=== PATIENT | female | born 1965 | race Caucasian/White ===

== ENCOUNTER 2016-10-08 22:56 | Emergency (ER) | payer MEDICARE ==
[~2016-10-08] VITALS: Ht 162.6 cm; Wt 82.2 kg
[~2016-10-08 22:56] MED LIST: AMARYL2 MG OR; ASA LO-DOSE81 MG OR; AVELOX400 MG OR; BAYER ASA325 MG OR; BEANO OR; CIPRO500 MG OR; COMBIVIR OR; COREG12.5 MG PO; CYMBALTA30 MG PO; DARVOCET N-100100 - OR; DIOVAN320 MG PO; ELAVIL10 MG PO; FLEXERIL OR; GERITOL OR; GLIMEPIRIDE4 MG OR; HYZAAR1 TA1 OR; JANUMET1 TA1 PO; LANTUS100 MG/ML SC; LORTAB 5 OR; LUNESTA3 MG OR; LYRICA75 MG OR; MEDROL4 M1 OR; METFORMIN500 MG OR; METOPROL TAR100 MG PO; METOPROLOL25 M1 OR; MIRTAZAPINE ODT15 MG PO; NAPROSYN500 MG OR; NAPROSYN500 MG PO; NORCO1 TA1 PO; NORTRIPTYLIN10 MG PO; PAROXETINE10 M1 PO; PAXIL30 MG PO; PAXIL40 MG OR; PERCOCET1 TA2 OR; PLAVIX75 MG OR; PLAVIX75 MG PO; PRAVACHOL40 MG OR; PROTONIX40 MG OR; REMERON15 MG PO; SUSTIVA50 MG OR; TOUJEO SOL300 UNIT/M SC; ULTRAM50 MG OR; VIT C OR; XANAX2 MG OR; [UNRECOGNIZED DRUG - OTHER] OR
[2016-10-09 01:37] LABS: URINE BILIRUBIN - DIPSTICK NEGATIVE (NEGATIVE); URINE BLOOD DIPSTICK SMALL (NEGATIVE); URINE CLARITY SLIGHT CLOUDY; URINE COLOR YELLOW; URINE GLUCOSE - DIPSTICK >=1000 mg/dL (NEGATIVE); URINE KETONE NEGATIVE (NEGATIVE); URINE LEUK ESTERASE NEGATIVE (NEGATIVE); URINE NITRITE - DIPSTICK NEGATIVE (Negative); URINE PH 6.5 (4.5-8.0); URINE PROTEIN - DIPSTICK NEGATIVE (NEG-TRACE)
[2016-10-09 01:38] LABS: ALBUMIN 3.7 g/dL (3.2-5.0); ALKALINE PHOSPHATASE 224 u/l (38-126); AMYLASE 38 u/l (30-110); ANION GAP 13 (6-22 (CALC)); BILIRUBIN, TOTAL 1.3 mg/dL (0.0-1.4); BUN 10 mg/dL (7-17); BUN/CREATININE RATIO 16 (12-20 (CALC)); CALCIUM 9.4 mg/dL (8.4-10.2); CARBON DIOXIDE 29 mmol/l (22-30); CHLORIDE 99 mmol/l (95-108); CREATININE 0.6 mg/dL (0.5-1.0); GFR > 60 ML/MIN (>=60 (CALC)); GFR FOR AFR.AMER. > 60 ML/MIN (>=60 (CALC)); GLUCOSE 346 mg/dL (65-105); LIPASE 78 u/l (23-300); POTASSIUM 4.9 mmol/l (3.5-5.1); SGOT/AST 74 u/l (14-36); SGPT/ALT 55 u/l (9-52); SODIUM 137 mmol/l (137-146)
[2016-10-09 01:39] LABS: HEMATOCRIT 41.5 % (37.0-47.0); IMMATURE GRANULOCYTES 0.4 % (0.0-1.0); MEAN CELL VOLUME 96.5 fL CALC (80.0-100.0); MEAN CORPUSCULAR HGB 32.6 pG CALC (26.0-32.0); MEAN CORPUSCULAR HGB CONC 33.7 g/L CALC (32.0-36.0); NEUT# 2.91 thou/uL (2.00-7.15); RED BLOOD COUNT 4.3 mill/uL (4.20-5.60); RED CELL DISTRI WIDTH 13.8 % (11.5-15.5)
[2016-10-09 01:50] LABS: URINE BACTERIA FEW hpf; URINE SQUAMOUS EPITHELIAL CELL FEW EPI/hpf (0-FEW)
[2016-10-09] MEDS ORDERED: TRAMADOL HYDROC50 MG PO (02:07)
[2016-10-09] MEDS ORDERED: ORPHENADRINE100 MG PO (02:07)
[2016-10-09 02:28] VITALS: BP 159/78
== END 2016-10-09 02:33 | disposition home or self-care (01) ==
LOC: ED 22:56
PROVIDERS: Emergency Medicine
DX: M54.9 Dorsalgia, unspecified (principal); K74.60 Unspecified cirrhosis of liver; I25.10 Atherosclerotic heart disease of native coronary artery without angina pectoris; E11.9 Type 2 diabetes mellitus without complications; I10 Essential (primary) hypertension; F32.9 Major depressive disorder, single episode, unspecified; F17.210 Nicotine dependence, cigarettes, uncomplicated; K76.6 Portal hypertension; R16.1 Splenomegaly, not elsewhere classified; K43.9 Ventral hernia without obstruction or gangrene; Z95.1 Presence of aortocoronary bypass graft; Z95.5 Presence of coronary angioplasty implant and graft; Z21 Asymptomatic human immunodeficiency virus [HIV] infection status

== ENCOUNTER 2016-11-13 21:11 | Emergency (ER) | payer MEDICARE ==
[~2016-11-13] VITALS: Ht 162.6 cm; Wt 82.4 kg
[~2016-11-13 21:11] MED LIST changes: +ORPHENADRINE100 MG PO; +TRAMADOL HYDROC50 MG PO
[2016-11-13 22:01] LABS: URINE BILIRUBIN - DIPSTICK NEGATIVE (NEGATIVE); URINE BLOOD DIPSTICK MODERATE (NEGATIVE); URINE CLARITY SLIGHT CLOUDY; URINE COLOR YELLOW; URINE GLUCOSE - DIPSTICK >=1000 mg/dL (NEGATIVE); URINE KETONE NEGATIVE (NEGATIVE); URINE LEUK ESTERASE NEGATIVE (NEGATIVE); URINE NITRITE - DIPSTICK NEGATIVE (Negative); URINE PH 6.5 (4.5-8.0); URINE PROTEIN - DIPSTICK NEGATIVE (NEG-TRACE)
[2016-11-13 22:04] LABS: URINE BACTERIA FEW hpf; URINE MUCUS FEW hpf (NONE-FEW); URINE SQUAMOUS EPITHELIAL CELL MODERATE EPI/hpf (0-FEW)
[2016-11-13 22:11] LABS: HEMATOCRIT 39.3 % (37.0-47.0); HEMOGLOBIN 13.4 g/dl (12.0-16.0); IMMATURE GRANULOCYTES 0.3 % (0.0-1.0); MEAN CELL VOLUME 92.9 fL CALC (80.0-100.0); MEAN CORPUSCULAR HGB 31.7 pG CALC (26.0-32.0); MEAN CORPUSCULAR HGB CONC 34.1 g/L CALC (32.0-36.0); NEUT# 3.97 thou/uL (2.00-7.15); RED BLOOD COUNT 4.23 mill/uL (4.20-5.60); RED CELL DISTRI WIDTH 14.5 % (11.5-15.5)
[2016-11-13 22:24] LABS: ALBUMIN 3.7 g/dL (3.2-5.0); ALKALINE PHOSPHATASE 308 u/l (38-126); AMYLASE 37 u/l (30-110); ANION GAP 16 (6-22 (CALC)); BILIRUBIN, TOTAL 1.4 mg/dL (0.0-1.4); BUN 7 mg/dL (7-17); BUN/CREATININE RATIO 14 (12-20 (CALC)); CARBON DIOXIDE 24 mmol/l (22-30); CHLORIDE 99 mmol/l (95-108); CREATININE 0.5 mg/dL (0.5-1.0); GFR > 60 ML/MIN (>=60 (CALC)); GFR FOR AFR.AMER. > 60 ML/MIN (>=60 (CALC)); GLUCOSE 372 mg/dL (65-105); LIPASE 93 u/l (23-300); POTASSIUM 4.4 mmol/l (3.5-5.1); SGOT/AST 70 u/l (14-36); SGPT/ALT 62 u/l (9-52); SODIUM 134 mmol/l (137-146)
[2016-11-14 00:38] VITALS: BP 159/72
== END 2016-11-14 00:40 | disposition home or self-care (01) ==
LOC: ED 21:11
PROVIDERS: Emergency Medicine
DX: R10.11 Right upper quadrant pain (principal); K74.60 Unspecified cirrhosis of liver; R16.1 Splenomegaly, not elsewhere classified; R18.8 Other ascites; G89.29 Other chronic pain; E11.65 Type 2 diabetes mellitus with hyperglycemia; I25.10 Atherosclerotic heart disease of native coronary artery without angina pectoris; I10 Essential (primary) hypertension; F17.210 Nicotine dependence, cigarettes, uncomplicated; F32.9 Major depressive disorder, single episode, unspecified; Z95.1 Presence of aortocoronary bypass graft; Z95.5 Presence of coronary angioplasty implant and graft; Z21 Asymptomatic human immunodeficiency virus [HIV] infection status
CPT/HCPCS: S0164

== ENCOUNTER 2016-12-25 20:49 | Emergency (ER) | payer MEDICARE, MEDICAID ==
[~2016-12-25] VITALS: Ht 162.6 cm; Wt 83.0 kg
[~2016-12-25 20:49] MED LIST changes: +ASPIRIN81 MG PO
[2016-12-25] MEDS ORDERED: ULTRAM50 M1 PO (22:07)
[2016-12-25 22:33] VITALS: BP 150/73
[2016-12-26] MEDS ORDERED: NAPROSYN500 MG PO ×2 (03:00→03:03)
== END 2016-12-25 22:31 | disposition home or self-care (01) ==
LOC: ED 20:49
DX: S80.11XA Contusion of right lower leg, initial encounter (principal); I25.10 Atherosclerotic heart disease of native coronary artery without angina pectoris; E11.9 Type 2 diabetes mellitus without complications; I10 Essential (primary) hypertension; F32.9 Major depressive disorder, single episode, unspecified; K74.60 Unspecified cirrhosis of liver; F17.210 Nicotine dependence, cigarettes, uncomplicated; W01.0XXA Fall on same level from slipping, tripping and stumbling without subsequent striking against object, initial encounter; Z21 Asymptomatic human immunodeficiency virus [HIV] infection status; Z95.1 Presence of aortocoronary bypass graft; Z95.5 Presence of coronary angioplasty implant and graft; Y92.009 Unspecified place in unspecified non-institutional (private) residence as the place of occurrence of the external cause

== ENCOUNTER 2017-03-11 15:52 | Emergency (ER) | payer MEDICARE ==
[~2017-03-11] VITALS: Ht 162.6 cm; Wt 104.5 kg
[~2017-03-11 15:52] MED LIST changes: +ABACAVIR SULFAT1 TAB PO; +AMLODIPINE BESYL5 MG PO; +CLOPIDOGREL75 MG PO; +FAMOTIDINE20 M1 PO; +GLIMEPIRIDE4 MG PO; +LEVEMIR FL100 UNIT/M SC; +METFORMIN500 M2 PO; +PREZCOBIX 800-11 TAB PO; +ULTRAM50 M1 PO; +ZOLPIDEM TARTRA10 MG PO; +[UNRECOGNIZED DRUG - OTHER] PO
[2017-03-11 16:30] LABS: HEMATOCRIT 40.2 % (37.0-47.0); HEMOGLOBIN 13.8 g/dl (12.0-16.0); IMMATURE GRANULOCYTES 0.4 % (0.0-1.0); MEAN CELL VOLUME 96.2 fL CALC (80.0-100.0); MEAN CORPUSCULAR HGB CONC 34.3 g/L CALC (32.0-36.0); NEUT# 5.22 thou/uL (2.00-7.15); RED BLOOD COUNT 4.18 mill/uL (4.20-5.60); RED CELL DISTRI WIDTH 14.4 % (11.5-15.5)
[2017-03-11 16:44] LABS: ALBUMIN 3.8 g/dL (3.2-5.0); ALKALINE PHOSPHATASE 263 u/l (38-126); ANION GAP 17 (6-22 (CALC)); BILIRUBIN, TOTAL 1.5 mg/dL (0.0-1.4); BUN 8 mg/dL (7-17); BUN/CREATININE RATIO 18 (12-20 (CALC)); CALCIUM 9.2 mg/dL (8.4-10.2); CARBON DIOXIDE 21 mmol/l (22-30); CHLORIDE 103 mmol/l (95-108); CREATININE 0.4 mg/dL (0.5-1.0); GFR > 60 ML/MIN (>=60 (CALC)); GFR FOR AFR.AMER. > 60 ML/MIN (>=60 (CALC)); GLUCOSE 399 mg/dL (65-105); POTASSIUM 4.2 mmol/l (3.5-5.1); SGOT/AST 48 u/l (14-36); SGPT/ALT 39 u/l (9-52); SODIUM 137 mmol/l (137-146); TOTAL PROTEIN 8.7 g/dL (6.3-8.2)
[2017-03-11 16:45] LABS: ACT PARTIAL THROMBO TIME 25.4 SECONDS (20.0-32.5); PROTHROMBIN TIME 11.4 SECONDS (9.0-12.5)
[2017-03-11 16:56] LABS: MYOGLOBIN 19 ng/mL (0 - 62)
[2017-03-11 17:35] LABS: URINE BILIRUBIN - DIPSTICK NEGATIVE (NEGATIVE); URINE BLOOD DIPSTICK LARGE (NEGATIVE); URINE CLARITY CLEAR; URINE COLOR YELLOW; URINE GLUCOSE - DIPSTICK >=1000 mg/dL (NEGATIVE); URINE KETONE NEGATIVE (NEGATIVE); URINE LEUK ESTERASE NEGATIVE (NEGATIVE); URINE NITRITE - DIPSTICK NEGATIVE (Negative); URINE PROTEIN - DIPSTICK TRACE mg/dL (NEG-TRACE)
[2017-03-11 17:37] LABS: BARBITURATES NEGATIVE (NEGATIVE); COCAINE NEGATIVE (NEGATIVE); METHADONE NEGATIVE (NEGATIVE); OXCYCODONE NEGATIVE (NEGATIVE); TETRAHYDROCANNABIONOL NEGATIVE (NEGATIVE); TRICYLIC ANTIDEPRESSANTS NEGATIVE (NEGATIVE)
[2017-03-11 17:42] VITALS: BP 155/80
[2017-03-11 17:44] LABS: URINE SQUAMOUS EPITHELIAL CELL FEW EPI/hpf (0-FEW); URINE WBC 0-2 WBC/hpf (0-5)
== END 2017-03-11 18:07 | disposition short-term general hospital (02) ==
LOC: ED 15:52
PROVIDERS: Emergency Medicine
DX: I63.9 Cerebral infarction, unspecified (principal); G81.91 Hemiplegia, unspecified affecting right dominant side; I25.10 Atherosclerotic heart disease of native coronary artery without angina pectoris; E11.9 Type 2 diabetes mellitus without complications; I10 Essential (primary) hypertension; F32.9 Major depressive disorder, single episode, unspecified; K74.60 Unspecified cirrhosis of liver; Z21 Asymptomatic human immunodeficiency virus [HIV] infection status; Z95.5 Presence of coronary angioplasty implant and graft; Z95.1 Presence of aortocoronary bypass graft

== ENCOUNTER 2017-03-17 20:13 | Emergency (ER) | payer MEDICARE ==
[~2017-03-17] VITALS: Ht 162.6 cm; Wt 100.0 kg
[2017-03-17 21:42] LABS: HEMATOCRIT 42.2 % (37.0-47.0); HEMOGLOBIN 14.2 g/dl (12.0-16.0); IMMATURE GRANULOCYTES 0.1 % (0.0-1.0); MEAN CELL VOLUME 96.3 fL CALC (80.0-100.0); MEAN CORPUSCULAR HGB 32.4 pG CALC (26.0-32.0); MEAN CORPUSCULAR HGB CONC 33.6 g/L CALC (32.0-36.0); NEUT# 5.52 thou/uL (2.00-7.15); RED BLOOD COUNT 4.38 mill/uL (4.20-5.60); RED CELL DISTRI WIDTH 14.3 % (11.5-15.5)
[2017-03-17 21:44] LABS: URINE BILIRUBIN - DIPSTICK NEGATIVE (NEGATIVE); URINE BLOOD DIPSTICK MODERATE (NEGATIVE); URINE CLARITY CLEAR; URINE COLOR YELLOW; URINE GLUCOSE - DIPSTICK >=1000 mg/dL (NEGATIVE); URINE KETONE NEGATIVE (NEGATIVE); URINE LEUK ESTERASE NEGATIVE (NEGATIVE); URINE NITRITE - DIPSTICK NEGATIVE (Negative); URINE PROTEIN - DIPSTICK TRACE mg/dL (NEG-TRACE)
[2017-03-17 21:47] LABS: BARBITURATES NEGATIVE (NEGATIVE); COCAINE NEGATIVE (NEGATIVE); METHADONE NEGATIVE (NEGATIVE); OXCYCODONE NEGATIVE (NEGATIVE); TETRAHYDROCANNABIONOL NEGATIVE (NEGATIVE); TRICYLIC ANTIDEPRESSANTS NEGATIVE (NEGATIVE)
[2017-03-17 22:02] LABS: URINE SQUAMOUS EPITHELIAL CELL FEW EPI/hpf (0-FEW)
[2017-03-17 22:06] LABS: ALBUMIN 4.1 g/dL (3.2-5.0); ALKALINE PHOSPHATASE 219 u/l (38-126); ANION GAP 15 (6-22 (CALC)); BILIRUBIN, TOTAL 1.4 mg/dL (0.0-1.4); BUN 8 mg/dL (7-17); BUN/CREATININE RATIO 16 (12-20 (CALC)); CALCIUM 9.7 mg/dL (8.4-10.2); CARBON DIOXIDE 28 mmol/l (22-30); CHLORIDE 101 mmol/l (95-108); CREATININE 0.5 mg/dL (0.5-1.0); GFR > 60 ML/MIN (>=60 (CALC)); GFR FOR AFR.AMER. > 60 ML/MIN (>=60 (CALC)); GLUCOSE 305 mg/dL (65-105); SGOT/AST 44 u/l (14-36); SGPT/ALT 46 u/l (9-52); SODIUM 141 mmol/l (137-146); TOTAL PROTEIN 8.8 g/dL (6.3-8.2)
[2017-03-17] MEDS ORDERED: CIPROFLOXACN500 MG PO (22:30)
[2017-03-17 22:54] VITALS: BP 177/89
== END 2017-03-17 22:54 | disposition home or self-care (01) ==
LOC: ED 20:13
PROVIDERS: Emergency Medicine
DX: F41.9 Anxiety disorder, unspecified (principal); N39.0 Urinary tract infection, site not specified; E11.65 Type 2 diabetes mellitus with hyperglycemia; Z79.4 Long term (current) use of insulin; Z79.84 Long term (current) use of oral hypoglycemic drugs; R53.1 Weakness; I25.810 Atherosclerosis of coronary artery bypass graft(s) without angina pectoris; I10 Essential (primary) hypertension; F17.210 Nicotine dependence, cigarettes, uncomplicated; Z95.1 Presence of aortocoronary bypass graft; Z95.5 Presence of coronary angioplasty implant and graft; Z86.73 Personal history of transient ischemic attack (TIA), and cerebral infarction without residual deficits; Z21 Asymptomatic human immunodeficiency virus [HIV] infection status

== ENCOUNTER 2017-03-23 12:39 | Emergency (ER) | payer MEDICARE ==
[~2017-03-23] VITALS: Ht 162.6 cm; Wt 84.0 kg
[~2017-03-23 12:39] MED LIST changes: +CIPROFLOXACN500 MG PO
[2017-03-23 13:53] LABS: HEMATOCRIT 39.3 % (37.0-47.0); HEMOGLOBIN 13.3 g/dl (12.0-16.0); IMMATURE GRANULOCYTES 0.2 % (0.0-1.0); MEAN CELL VOLUME 94.5 fL CALC (80.0-100.0); MEAN CORPUSCULAR HGB CONC 33.8 g/L CALC (32.0-36.0); NEUT# 3.46 thou/uL (2.00-7.15); RED BLOOD COUNT 4.16 mill/uL (4.20-5.60)
[2017-03-23 13:58] LABS: ACT PARTIAL THROMBO TIME 25.9 SECONDS (20.0-32.5); INTERNATIONAL NORMALIZED RATIO 1.1 RATIO (0.7-1.3); PROTHROMBIN TIME 11.6 SECONDS (9.0-12.5)
[2017-03-23 14:00] LABS: ALBUMIN 3.4 g/dL (3.2-5.0); ALKALINE PHOSPHATASE 149 u/l (38-126); ANION GAP 19 (6-22 (CALC)); BILIRUBIN, TOTAL 1.5 mg/dL (0.0-1.4); BUN 8 mg/dL (7-17); BUN/CREATININE RATIO 16 (12-20 (CALC)); CALCIUM 8.8 mg/dL (8.4-10.2); CARBON DIOXIDE 25 mmol/l (22-30); CHLORIDE 100 mmol/l (95-108); CREATININE 0.5 mg/dL (0.5-1.0); GFR > 60 ML/MIN (>=60 (CALC)); GFR FOR AFR.AMER. > 60 ML/MIN (>=60 (CALC)); GLUCOSE 221 mg/dL (65-105); POTASSIUM 3.9 mmol/l (3.5-5.1); SGOT/AST 42 u/l (14-36); SGPT/ALT 39 u/l (9-52); SODIUM 141 mmol/l (137-146); TOTAL PROTEIN 7.6 g/dL (6.3-8.2)
[2017-03-23 14:12] LABS: MYOGLOBIN 57 ng/mL (0 - 62)
[2017-03-23] MEDS ORDERED: AMLODIPINE5 MG PO (14:30)
[2017-03-23] MEDS ORDERED: AMBIEN5 MG PO (14:30)
[2017-03-23] MEDS ORDERED: PREZCOBIX 800-11 TAB PO (14:31)
[2017-03-23] MEDS ORDERED: LEVEMIR100 UNIT/M SC (14:32)
[2017-03-23] MEDS ORDERED: HUMULIN 70/30 SC (14:32)
[2017-03-23] MEDS ORDERED: PEPCID20 MG PO (14:33)
[2017-03-23] MEDS ORDERED: [UNRECOGNIZED DRUG - OTHER] PO (14:33)
[2017-03-23] MEDS ORDERED: SPIRONOLACTONE25 MG PO (14:34)
[2017-03-23] MEDS ORDERED: LASIX20 MG PO (14:34)
[2017-03-23] MEDS ORDERED: PLAVIX75 MG PO (14:35)
[2017-03-23] MEDS ORDERED: DIFLUCAN100 MG PO (14:35)
[2017-03-23 15:11] LABS: URINE BLOOD DIPSTICK SMALL (NEGATIVE); URINE GLUCOSE - DIPSTICK 100 mg/dL (NEGATIVE); URINE KETONE NEGATIVE (NEGATIVE); URINE LEUK ESTERASE NEGATIVE (NEGATIVE); URINE NITRITE - DIPSTICK NEGATIVE (Negative); URINE PH 6.5 (4.5-8.0); URINE PROTEIN - DIPSTICK 30 mg/dL (NEG-TRACE)
[2017-03-23 15:13] LABS: URINE BILIRUBIN - DIPSTICK NEGATIVE (NEGATIVE); URINE CLARITY CLEAR; URINE COLOR AMBER
[2017-03-23 15:21] LABS: URINE SQUAMOUS EPITHELIAL CELL FEW EPI/hpf (0-FEW); URINE WBC 0-2 WBC/hpf (0-5)
[2017-03-23 19:09] VITALS: BP 146/102
== END 2017-03-23 19:10 ==
LOC: ED 12:39
PROVIDERS: Emergency Medicine
DX: I63.9 Cerebral infarction, unspecified (principal); G81.91 Hemiplegia, unspecified affecting right dominant side; I10 Essential (primary) hypertension; F17.210 Nicotine dependence, cigarettes, uncomplicated; R29.704 NIHSS score 4; I25.810 Atherosclerosis of coronary artery bypass graft(s) without angina pectoris; Z95.1 Presence of aortocoronary bypass graft; Z95.5 Presence of coronary angioplasty implant and graft; Z21 Asymptomatic human immunodeficiency virus [HIV] infection status; R79.89 Other specified abnormal findings of blood chemistry
CPT/HCPCS: J2060

== ENCOUNTER 2017-05-02 15:10 | Emergency (ER) | payer MEDICARE ==
[~2017-05-02] VITALS: Ht 162.6 cm; Wt 145.0 kg
[~2017-05-02 15:10] MED LIST changes: +AMBIEN5 MG PO; +AMLODIPINE5 MG PO; +DIFLUCAN100 MG PO; +HUMULIN 70/30 SC; +LASIX20 MG PO; +LEVEMIR100 UNIT/M SC; +PEPCID20 MG PO; +SPIRONOLACTONE25 MG PO
[2017-05-02 15:37] LABS: HEMATOCRIT 38.4 % (37.0-47.0); HEMOGLOBIN 12.9 g/dl (12.0-16.0); IMMATURE GRANULOCYTES 0.3 % (0.0-1.0); MEAN CELL VOLUME 94.6 fL CALC (80.0-100.0); MEAN CORPUSCULAR HGB 31.8 pG CALC (26.0-32.0); MEAN CORPUSCULAR HGB CONC 33.6 g/L CALC (32.0-36.0); NEUT# 4.2 thou/uL (2.00-7.15); RED BLOOD COUNT 4.06 mill/uL (4.20-5.60); RED CELL DISTRI WIDTH 15.8 % (11.5-15.5)
[2017-05-02] MEDS ORDERED: METO25TAB PO (15:53)
[2017-05-02] MEDS ORDERED: ASPIRIN81 MG PO (15:53)
[2017-05-02] MEDS ORDERED: CITALOPRAM40 MG PO (15:54)
[2017-05-02] MEDS ORDERED: LISINOPRIL10 MG PO (15:55)
[2017-05-02] MEDS ORDERED: ABACAVIR300 MG PO (15:57)
[2017-05-02 16:09] LABS: BUN 13 mg/dL (7-17); BUN/CREATININE RATIO 24 (12-20 (CALC)); CALCIUM 8.9 mg/dL (8.4-10.2); CARBON DIOXIDE 19 mmol/l (22-30); CHLORIDE 109 mmol/l (95-108); CREATININE 0.5 mg/dL (0.5-1.0); GFR > 60 ML/MIN (>=60 (CALC)); GFR FOR AFR.AMER. > 60 ML/MIN (>=60 (CALC)); GLUCOSE 287 mg/dL (65-105); SODIUM 139 mmol/l (137-146)
[2017-05-02 16:10] LABS: ANION GAP 16 (6-22 (CALC)); POTASSIUM 5.3 mmol/l (3.5-5.1)
[2017-05-02 16:11] VITALS: BP 132/78
[2017-05-02 16:30] LABS: PROTHROMBIN TIME 11.3 SECONDS (9.0-12.5)
== END 2017-05-02 16:11 ==
LOC: ED 15:10
PROVIDERS: Family Medicine
DX: I63.9 Cerebral infarction, unspecified (principal); I69.351 Hemiplegia and hemiparesis following cerebral infarction affecting right dominant side; R42 Dizziness and giddiness; R26.89 Other abnormalities of gait and mobility; I25.10 Atherosclerotic heart disease of native coronary artery without angina pectoris; E11.9 Type 2 diabetes mellitus without complications; I10 Essential (primary) hypertension; F32.9 Major depressive disorder, single episode, unspecified; K74.60 Unspecified cirrhosis of liver; Z21 Asymptomatic human immunodeficiency virus [HIV] infection status; Z95.5 Presence of coronary angioplasty implant and graft; Z95.1 Presence of aortocoronary bypass graft